=== PATIENT | female | born 1945 | race Caucasian/White ===

== ENCOUNTER 2018-06-04 14:15 | Day surgery (SDC) | payer MEDICARE, OTHER ==
[2018-05-28 10:16] LABS: HEMATOCRIT 38.2 % (36.0-47.0); HEMOGLOBIN 12.8 g/dL (12.0-15.5); MEAN CORPUSCULAR HEMOGLOBIN 29.1 pg (27.0-33.4); MEAN CORPUSCULAR HGB CONC 33.6 g/dL (32.0-36.0); MEAN CORPUSCULAR VOLUME 87 fl (80-97); PLATELET COUNT 201 10^3/uL (150-450); RED CELL DISTRIBUTION WIDTH 14.1 % (11.5-14.0); WHITE BLOOD COUNT 5.8 10^3/uL (4.0-10.5)
[2018-05-28 10:22] LABS: APPEARANCE,URINE CLEAR; BILIRUBIN,URINE NEGATIVE (NEGATIVE); COLOR,URINE YELLOW; GLUCOSE, URINE NEGATIVE (NEGATIVE); KETONES,URINE NEGATIVE (NEGATIVE); LEUKOCYTE ESTERASE,URINE NEGATIVE (NEGATIVE); NITRITE,URINE NEGATIVE (NEGATIVE); PROTEIN,URINE NEGATIVE (NEGATIVE); URINE SPECIFIC GRAVITY 1.036
[2018-05-28 10:40] LABS: ANION GAP 7 (5-19); BLOOD UREA NITROGEN 22 mg/dL (7-20); CALCIUM 9.5 mg/dL (8.4-10.2); CARBON DIOXIDE 27 mmol/L (22-30); CHLORIDE 106 mmol/L (98-107); GLUCOSE 89 mg/dL (75-110); SODIUM 140.2 mmol/L (137-145)
--- NOTE | 2018-05-28 11:33 | RADIOLOGY REPORT (SQ) ---
EXAM DESCRIPTION: CHEST PA/LATERAL COMPLETED DATE/TIME: 05/28/2018 10:45 am REASON FOR STUDY: PRE-OP COMPARISON: None. EXAM PARAMETERS: NUMBER OF VIEWS: two views TECHNIQUE: Digital Frontal and Lateral radiographic views of the chest acquired. RADIATION DOSE: NA LIMITATIONS: none FINDINGS: LUNGS AND PLEURA: No opacities, masses or pneumothorax. No pleural effusion. MEDIASTINUM AND HILAR STRUCTURES: No masses or contour abnormalities. HEART AND VASCULAR STRUCTURES: Heart normal size. No evidence for failure. BONES: Slight compression deformity of one of the mid thoracic vertebra, one of the vertebra at the thoracolumbar junction and one of the upper lumbar spine vertebra, maybe on a remote basis. HARDWARE: None in the chest. OTHER: No other significant finding. IMPRESSION: 1. NO SIGNIFICANT RADIOGRAPHIC FINDING IN THE CHEST. 2. Slight compression deformities involving one of the mid thoracic, thoracolumbar junction and uppe r lumbar spine vertebrae, maybe on a remote basis. Correlation with history suggested. TECHNICAL DOCUMENTATION: JOB ID: [id number] [employer]- All Rights Reserved Reading location - IP/workstation name: [email or web address]
--- NOTE | 2018-05-28 12:14 | EKG REPORT ---
SEVERITY:- NORMAL ECG - SINUS RHYTHM : Confirmed by: Lloyd Lewis MD 28-May-2018 12:13:27
[~2018-06-04 14:15] MED LIST: CEFAZOLIN 2 GM/D5W RTU 2 GM/50 ML RTUPB IV ONE; CEFAZOLIN 2 GM/D5W RTU 2 GM/50 ML RTUPB IV PRN; DEXAMETHASONE SOD PHOSPHATE INJ 4 MG/1 ML VIAL ONE; FENTANYL CITRATE INJ/PF 100 MCG/2 ML AMPUL ONE; LACTATED RINGERS 1000 ML IV PRN; LIDOCAINE 0.5% INJ-PF (5 MG/ML) 50 ML SDV SUBCUT PRN; MIDAZOLAM 2 MG/2 ML INJ ONE; ONDANSETRON HCL INJ/PF 4 MG/2 ML SDV ONE; PROPOFOL INJ 200 MG/20 ML VIAL IV ONE
[2018-06-04] MEDS ORDERED: LIDOCAINE 1% INJ-PF (10 MG/ML) 30 ML SDV ONE (14:35)
[2018-06-04] MEDS ORDERED: BUPIVACAINE HCL 0.5 % INJ/PF 30 ML SDV ONE (14:35)
[2018-06-04] MEDS ORDERED: DIPHENHYDRAMINE HCL 50 MG/ML VIAL IV PRN (18:08)
[2018-06-04] MEDS ORDERED: MORPHINE SULFATE 10 MG/ML INJ IV PRN (18:08)
[2018-06-04] MEDS ORDERED: FENTANYL CITRATE INJ/PF 100 MCG/2 ML AMPUL IV PRN ×3 (18:08)
[2018-06-04] MEDS ORDERED: PROMETHAZINE HCL INJ 25 MG/1 ML VIAL IV PRN ×2 (18:08)
[2018-06-04] MEDS ORDERED: MEPERIDINE HCL/PF INJ 25 MG/1 ML DISP.SYRIN IV PRN (18:08)
[2018-06-04] MEDS ORDERED: HYDROCODONE/ACETAMINOPHEN 5-325 MG TABLET PO PRN (18:42)
[2018-06-04] MEDS ORDERED: ONDANSETRON HCL INJ/PF 4 MG/2 ML SDV IV PRN (18:42)
--- NOTE | 2018-06-04 18:43 | Discharge Summary ---
Discharge Summary (SDC) - Discharge Final Diagnosis: Painful hardware left wrist Date of Surgery: 06/04/18 Discharge Date: 06/04/18 Condition: Good Treatment or Instructions: Schedule Follow Up w/ Dr. Nnamdi Canales @ [facility] for Surgery to be seen in 10-14 days or as scheduled [place]: [place]: [place]: May remove dressing on postop day #3, keep incision covered and dry. Ice and elevate May begin finger range of motion attempting to make full fist. Stool softener of choice when on pain medication. USE OF [id number] IBUPROFEN: Ibuprofen (Advil, Nuprin, Medipren, Motrin IB) is a medication for fever and pain control. In addition, it has anti- inflammatory effects which may be beneficial, especially in the treatment of injuries. It's best to take ibuprofen with food. Persons with ulcer disease or allergy to aspirin should notify their physician of this before taking ibuprofen. Ibuprofen can be given every four to six hours, for a total of four doses daily. Age Pain or fever dose Antiinflammatory dose 6-8 yr 200 mg (1 tab) 200 mg (1 tab) 9-11 yr 200 mg (1 tab) 200-400 mg (1-2 tab) 11-14 yr 200-400 mg (1-2 tab) 400 mg (2 tab) 15-adult 400 mg (2 tab) 600 mg (3 tab) ORAL NARCOTIC MEDICATION: You have been given a prescription for pain control. This medication is a narcotic. It's best taken with food, as nausea can result if taken on an empty stomach. Don't operate machinery or drive within six hours of taking this medication. Do not combine this medicine with alcohol, or with any medication which can cause sedation (such as cold tablets or sleeping pills) unless you get permission from the physician. Narcotics tend to cause constipation. If possible, drink plenty of fluids and eat a diet high in fiber and fruits. Please be aware that prescription narcotics also have the potential for abuse. People become addicted to these medications because of the general sense of wellbeing that they induce. This feeling along with a significant reduction in tension, anxiety, and aggression provides a stimulating seductive quality to these drugs. Once your pain is under control, we encourage you to discard your unused narcotics. Prescriptions: Hydrocodone/Acetaminophen [[place] 5-325 Tablet] 1 each PO Q6 PRN #10 tablet PRN Reason: Referrals: SHALONDA CROUCH PA [Primary Care Provider] - Discharge Diet: As Tolerated Respiratory Treatments at Home: Deep Breathing/Coughing Discharge Activity: No Lifting Over 10 Pounds, No Lifting/Push/Pulling Home Care Assistance: None Needed Report the Following to Your Physician Immediately: Fever over 101 Degrees, Unusual Bleeding, Redness, Swelling, Warmth
--- NOTE | 2018-06-04 18:44 | Operative Report ---
Operative Report DATE OF SURGERY: 06/04/18 PREOPERATIVE DIAGNOSIS: Painful hardware left wrist with flexor tendon adhesions POSTOPERATIVE DIAGNOSIS: Same OPERATION: Removal of hardware left wrist with flexor tenolysis FPL SURGEON: JUAN PARKS ANESTHESIA: GA COMPLICATIONS: None ESTIMATED BLOOD LOSS: Minimal PROCEDURE: Indication for above procedure: 73-year-old female who sustained a fall onto her left wrist resulting in a distal radius fracture. Patient underwent successful open reduction internal fixation she progressed appropriately throughout the postsurgical procedure but continued to have discomfort along the plate and thus decision was made to proceed with hardware removal. Risks and benefits were explained patient verbalized understanding consented for the procedure. Procedure In Detail: Patient was seen and evaluated in the preoperative holding area. The LEFT upper extremity was initialized and marked. Patient received 2g of Ancef IV for bacterial prophylaxis. Patient was taken back to the operative room where transferred to the operative table and placed under general anesthesia. Once they were adequately anesthetized a nonsterile tourniquet was placed on the upper extremity. A surgical team debriefing was performed ensuring all instrumentation was available, the surgical procedure was discussed with p ossible concerns reviewed. The upper extremity was prepped with chlorhexidine and alcohol and draped in a sterile fashion. A timeout was done identifying correct patient, procedure and extremity everyone in attendance agree with this and verbalized no concerns. The extremity was exsanguinated the tourniquet was inflated to 250 mmHg. Previous surgical incision was utilized. Blunt dissection was performed the FCR tendon was then retracted in a ulnar direction. There was evidence of FPL adhesion to the underlying pronator quadratus and the plate. Tenolysis was performed proximally and distally freeing the tendons from the pronator quadratus. Remnant of the pronator quadratus was then incised and elevated to expose the underlying hardware. All screws were removed including the plate. Screw holes were then curetted to promote healing. C-arm fluoroscopy was obtained demonstrating healed fracture. Wound was copiously irrigated with normal saline. Tourniquet was deflated. Any peripheral bleeding was controlled with bipolar cautery into the wound was dry. Skin was closed with running subcuticular 4-0 Monocryl reinforced with Dermabond and Steri-Strips. Soft dressing was placed. Sponge counts, instrument counts, needle counts were correct. Patient was then awoken from anesthesia. Transferred from the operating room table to the operating room stretcher. There was no intraoperative complications patient tolerated procedure well stable to PACU. Postop plan: Patient follow-up the office in 2 weeks for wound check. Will begin occupational therapy this week.
[2018-06-04] MEDS ORDERED: ONDANSETRON HCL INJ/PF 4 MG/2 ML SDV ONE (18:56)
--- NOTE | 2018-06-04 19:02 | RADIOLOGY REPORT (SQ) ---
EXAM DESCRIPTION: NO CHG FLUORO; WRIST LEFT 2 VIEWS COMPLETED DATE/TIME: 06/04/2018 6:54 pm REASON FOR STUDY: HARDWARE REMOVAL OF LEFT WRIST COMPARISON: None. FLUOROSCOPY TIME: 4 seconds 3 Images saved to PACS LIMITATIONS: None. PROCEDURE: Hardware removal FINDINGS: Images from fluoro show the absence of hardware in the wrist. Screw holes are present. IMPRESSION: Hardware removal. Refer to operative note for further information. COMMENT: PQRS 6045F: Fluoroscopy time of the procedure is documented in the report. TECHNICAL DOCUMENTATION: JOB ID: [id number] [employer]- All Rights Reserved Reading location - IP/workstation name: [email or web address]
--- NOTE | 2018-06-04 19:02 | RADIOLOGY REPORT (SQ) ---
EXAM DESCRIPTION: NO CHG FLUORO; WRIST LEFT 2 VIEWS COMPLETED DATE/TIME: 06/04/2018 6:54 pm REASON FOR STUDY: HARDWARE REMOVAL OF LEFT WRIST COMPARISON: None. FLUOROSCOPY TIME: 4 seconds 3 Images saved to PACS LIMITATIONS: None. PROCEDURE: Hardware removal FINDINGS: Images from fluoro show the absence of hardware in the wrist. Screw holes are present. IMPRESSION: Hardware removal. Refer to operative note for further information. COMMENT: PQRS 6045F: Fluoroscopy time of the procedure is documented in the report. TECHNICAL DOCUMENTATION: JOB ID: [id number] [employer]- All Rights Reserved Reading location - IP/workstation name: [email or web address]
[2018-06-04 20:37] VITALS: BP 144/66
== END 2018-06-04 20:35 | disposition home or self-care (01) ==
LOC: OROUT 14:15
PROVIDERS: ATTEND Orthopaedic Surgery
DX: T84.84XA Pain due to internal orthopedic prosthetic devices, implants and grafts, initial encounter (principal); Y83.8 Other surgical procedures as the cause of abnormal reaction of the patient, or of later complication, without mention of misadventure at the time of the procedure; M65.832 Other synovitis and tenosynovitis, left forearm; M25.532 Pain in left wrist; I49.9 Cardiac arrhythmia, unspecified; I10 Essential (primary) hypertension; J44.9 Chronic obstructive pulmonary disease, unspecified; Z79.82 Long term (current) use of aspirin; Z79.899 Other long term (current) drug therapy
CPT/HCPCS: 93005; 93010; 36415 ×2; 84132; 85027; 80048; 81001; 71046; 73100; 20680; 25295; J2250; J3490; J1100; J3010; J2405; J2704; J0690; 01830